=== PATIENT | female | born 1975 | race Caucasian/White ===

== ENCOUNTER → 2018-01-23 | Outpatient (CLI) | payer OTHER ==
[2018-01-25 14:11] LABS: HPV 16 Negative (Negative); HPV 18 Negative (Negative); HPV OTHER HR TYPES Negative (Negative)
== END | disposition home or self-care (01) ==
LOC: LAB 12:19 → LAB SHORT 12:19
PROVIDERS: Obstetrics & Gynecology
DX: Z01.419 Encounter for gynecological examination (general) (routine) without abnormal findings (principal)
CPT/HCPCS: 87624; G0123

== ENCOUNTER 2021-09-09 08:40 | Day surgery (SDC) | payer OTHER ==
[~2021-09-09] VITALS: Ht 167.6 cm; Wt 90.4 kg
[2021-09-09] MEDS ORDERED: LITH300C PO (09:14)
[2021-09-09] MEDS ORDERED: PRESTIQUE (09:15)
[2021-09-09] MEDS ORDERED: MISO200 (09:16)
== END 2021-09-09 11:19 | disposition home or self-care (01) ==
LOC: ORSCSDS 08:40
PROVIDERS: Obstetrics & Gynecology
PROC: 0UDB8ZX Extraction of Endometrium, Via Natural or Artificial Opening Endoscopic, Diagnostic (ICD-10-PCS; principal; 2021-09-09 10:00)
PROC: 0UDB8ZZ Extraction of Endometrium, Via Natural or Artificial Opening Endoscopic (ICD-10-PCS; principal; 2021-09-09 10:00)
DX: T83.32XA Displacement of intrauterine contraceptive device, initial encounter (principal); F31.9 Bipolar disorder, unspecified; Z79.899 Other long term (current) drug therapy; E66.9 Obesity, unspecified; Z68.32 Body mass index [BMI] 32.0-32.9, adult
CPT/HCPCS: A9270; J1885; J2250; J2405; J2704; J3010; J7120